=== PATIENT | male | born 1970 | race Caucasian/White ===

== ENCOUNTER 2017-01-19 15:26 | Outpatient (CLI) | payer OTHER | END 2017-01-19 15:27 | disposition home or self-care (01) | DX: R74.8 Abnormal levels of other serum enzymes (principal); R10.9 Unspecified abdominal pain ==

== ENCOUNTER 2017-11-23 08:34 | Outpatient (CLI) | payer OTHER ==
--- NOTE | 2017-11-23 10:03 | XRAY Report ---
DATE OF SERVICE: 11/23/2017 LEFT HIP AND PELVIS: 11/23/2017 CLINICAL INDICATION: Pain. FINDINGS: Frontal view of the hips and pelvis and a frogleg lateral view of the left hip demonstrate mild left hip osteoarthritis. There is no evidence of fracture or dislocation. No radiopaque foreign body is seen in the soft tissues. IMPRESSION: MILD LEFT HIP OSTEOARTHRITIS. TD: 11/23/2017 11:03
== END 2017-11-23 08:35 | disposition home or self-care (01) ==
LOC: DI 08:34
PROVIDERS: ATTEND Family Medicine
DX: M16.12 Unilateral primary osteoarthritis, left hip (principal)